=== PATIENT | male | born 1970 | race American Indian/Alaskan Native ===

== ENCOUNTER 2019-02-08 21:06 | Emergency (ER) | payer OTHER ==
[~2019-02-08] VITALS: Ht 175.3 cm; Wt 80.7 kg
[2019-02-08] MEDS ORDERED: NORCO 5-325 TA1 EACH PO (22:11)
== END 2019-02-08 22:22 | disposition home or self-care (01) ==
LOC: ED 21:06
DX: S43.101A Unspecified dislocation of right acromioclavicular joint, initial encounter (principal); V29.9XXA Motorcycle rider (driver) (passenger) injured in unspecified traffic accident, initial encounter
CPT/HCPCS: 73030; 99283-25

== ENCOUNTER 2020-04-18 21:14 | Emergency (ER) | payer OTHER ==
[~2020-04-18] VITALS: Ht 175.3 cm; Wt 80.7 kg
[~2020-04-18 21:14] MED LIST: NORCO 5-325 TA1 EACH PO
[2020-04-18] MEDS ORDERED: NORCO 5-325 TA1 EACH PO (22:17)
== END 2020-04-18 22:28 | disposition home or self-care (01) ==
LOC: ED 21:14
DX: S42.022A Displaced fracture of shaft of left clavicle, initial encounter for closed fracture (principal); S63.610A Unspecified sprain of right index finger, initial encounter; S80.211A Abrasion, right knee, initial encounter; V29.9XXA Motorcycle rider (driver) (passenger) injured in unspecified traffic accident, initial encounter
CPT/HCPCS: 73030; 73140; 81001; 99283-25

== ENCOUNTER 2020-04-19 12:24 | Emergency (ER) | payer OTHER ==
[~2020-04-19] VITALS: Ht 175.3 cm; Wt 80.7 kg
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
== END 2020-04-19 15:53 | disposition home or self-care (01) ==
LOC: ED 12:24
DX: S32.019A Unspecified fracture of first lumbar vertebra, initial encounter for closed fracture (principal); S32.029A Unspecified fracture of second lumbar vertebra, initial encounter for closed fracture; S32.039A Unspecified fracture of third lumbar vertebra, initial encounter for closed fracture; T79.6XXA Traumatic ischemia of muscle, initial encounter; V29.9XXA Motorcycle rider (driver) (passenger) injured in unspecified traffic accident, initial encounter
CPT/HCPCS: 74177; 80048; 82550; 85025; 99284-25; Q9967

== ENCOUNTER 2020-05-03 08:00 | Day surgery (SDC) | payer OTHER ==
[~2020-05-03] VITALS: Ht 175.3 cm; Wt 77.1 kg
[2020-05-03] MEDS ORDERED: HYDROCODON-ACE1 EA11 PO (11:14)
[2020-05-03] MEDS ORDERED: GABAPENTIN300 MG PO (11:14)
--- NOTE | 2020-05-03 11:19 | NUR ---
05/03/20 Yola9 Rocio Beyer 1113- PT TO PACU IN SUPINE POSITION. EYES CLOSED WITH ORAL AIRWAY IN PLACE. DOES NOT RESPOND TO VERBAL STIMULI. BREATHING EASY AND UNLABORED SPO2 >95% ON 6 L O2 VIA SIMPLE MASK. SLING IN PLACE. REPORT RECEIVED FROM LAUNDRY TUB MAKER AND ENGINEERING MANAGER. 1119- PT CONTINUES TO SLEEP IN SUPINE POSITION WITH ORAL AIRWAY IN PLACE. BREATHING EASY AND UNALBORED SPO2 >95% ON 6 L O2 VIA SIMPLE MASK.
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
== END 2020-05-03 12:50 | disposition home or self-care (01) ==
LOC: DS 08:00
PROVIDERS: Specialist
PROC: 0PSB04Z Reposition Left Clavicle with Internal Fixation Device, Open Approach (ICD-10-PCS; principal; 2020-05-03 10:45)
DX: S42.032A Displaced fracture of lateral end of left clavicle, initial encounter for closed fracture (principal); V89.2XXA Person injured in unspecified motor-vehicle accident, traffic, initial encounter
CPT/HCPCS: 01630; 62320; 64415; 64999; 73000; 76942; C1713; J0690; J1100; J1885; J2001; J2405; J2704; J2795; J3010

== ENCOUNTER 2021-12-29 11:00 | Emergency (ER) | payer OTHER ==
[~2021-12-29] VITALS: Ht 175.3 cm; Wt 80.7 kg
[~2021-12-29 11:00] MED LIST changes: +GABAPENTIN300 MG PO; +HYDROCODON-ACE1 EA11 PO
== END 2021-12-29 15:01 | disposition home or self-care (01) ==
LOC: ED 11:00
DX: S40.012A Contusion of left shoulder, initial encounter (principal); T84.038A Mechanical loosening of other internal prosthetic joint, initial encounter; V00.311A Fall from snowboard, initial encounter; Y93.29 Activity, other involving ice and snow
CPT/HCPCS: 73000; 73200; 99284-25; A9270

== ENCOUNTER 2022-02-20 07:25 | Day surgery (SDC) | payer OTHER ==
[~2022-02-20] VITALS: Ht 175.3 cm; Wt 79.5 kg
[2022-02-20] MEDS ORDERED: HYDROCODON-ACE1 EA10 PO (10:18)
--- NOTE | 2022-02-20 10:19 | NUR ---
02/20/22 1019 Debbie Allen 1011 PATIENT ARRIVES TO PACU UNRESPONSIVE TO PAIN. RN HOLDING JAW THRUST TO MAINTAIN PATENT AIRWAY. RESP EVEN AND UNLABORED,WITH INTERVENTION, MASK AT 6 LITERS. 1015 HOB ELEVATED. RN NO LONGER NEEDING TO HOLD JAW THRUST TO MAINTAIN PATENT AIRWAY.RESP EVEN AND UNLABORED, MASK CONTINUES AT 6 LITERS. 1017 PATIENT OPENS EYES WITH VERBAL STIMULI. RESP EVEN AND UNLABORED, OXYGEN MASK OFF. PATIENT SLEEPING WHEN NOT STIMULATED.
--- NOTE | 2022-02-20 11:01 | NUR ---
1045: PATIENT BACK IN DAY SURGERY ROOM FROM PACU. VS CHECKED. RATES PAIN 1/10. GIVEN SODA, ICE WATER, AND PUDDING. LEFT CLAVICLE DRESSING CDI. CSM TO LEFT FINGERS WNL. IV SITE WNL. SCDs ON. CALL LIGHT WITHIN REACH.
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
== END 2022-02-20 11:40 | disposition home or self-care (01) ==
LOC: DS 07:25
PROVIDERS: ATTEND Specialist
PROC: 0RPK0J6 Removal of Synthetic Substitute from Left Shoulder Joint, Humeral Surface, Open Approach (ICD-10-PCS; principal; 2022-02-20 10:45)
DX: T84.84XA Pain due to internal orthopedic prosthetic devices, implants and grafts, initial encounter (principal); T84.028A Dislocation of other internal joint prosthesis, initial encounter; G89.18 Other acute postprocedural pain
CPT/HCPCS: J0131; J0690; J1100; J1885; J2001; J2405; J2704; J3010; J7121

== ENCOUNTER 2024-05-30 13:28 | Emergency (ER) | payer OTHER ==
[~2024-05-30] VITALS: Ht 175.3 cm; Wt 76.5 kg
[2024-05-30] MEDS ORDERED: ondansetron HCL 4 MG/2 ML VIAL IV ONE (14:15)
[2024-05-30] MEDS ORDERED: SODIUM CHLORIDE 0.9% 1,000 ML IV ONE (14:15)
[2024-05-30] MEDS ORDERED: KETOROLAC TROMETHAMINE 30 MG/ML VIAL IV ONE (14:15)
[2024-05-30 14:23] LABS: BILIRUBIN, URINE NEGATIVE (negative); BLOOD/HGB, URINE MODERATE (Negative); KETONE, URINE SMALL (Negative); LEUK ESTERASE, URINE NEGATIVE (negative); NITRITE, URINE POSITIVE (negative); PH, URINE 6.5 (5-7)
[2024-05-30 14:25] LABS: EOSINOPHILS 0.2 % (0-6); NEUTROPHILS 89.4 % (39-80); RDW 14.3 (10.5-15.0)
[2024-05-30 14:27] LABS: BASOPHILS 0.4 % (0-2); HEMATOCRIT 45.3 % (35.0-50.0); HEMOGLOBIN 14.9 g/dL (12.0-18.0); LYMPHOCYTES 5.9 % (24-44); MCH 29.5 (27-36); MCHC 32.8 g/dl (30-36); MONOCYTES 4.1 % (0-12); PLATELET COUNT 283 K/uL (140-440); RBC 5.03 M/ul (4.3-5.7)
[2024-05-30 14:31] LABS: BACTERIA, URINE NONE SEEN /hpf (negative); CASTS, URINE NONE SEEN \\lpf; COLLECTION TYPE, URINE CLEAN CATCH; CRYSTALS, URINE NONE SEEN (0-1+); EPITHELIAL CELLS, URINE NONE SEEN /lpf (0-1+); REFLEX CULTURE, URINE No (No)
[2024-05-30 14:44] LABS: ALBUMIN 3.9 g/dL (3.4-5.0); ALBUMIN/GLOBULIN RATIO 0.95 (1.1-2.4); BILIRUBIN, TOTAL 1.2 ng/dL (0.2-1.0); BUN/CREATININE RATIO 10.07 (6.0-28.6); CALCIUM 9.3 mg/dL (8.5-10.1); CREATININE, SERUM 1.29 mg/dL (0.70-1.30)
[2024-05-30] MEDS ORDERED: TAMSULOSIN HCL 0.4 MG CAP PO ONE (17:00)
[2024-05-30 17:11] VITALS: BP 164/94
== END 2024-05-30 17:12 | disposition home or self-care (01) ==
LOC: ED 13:28
PROVIDERS: Emergency Medicine
DX: N13.2 Hydronephrosis with renal and ureteral calculous obstruction (principal)
CPT/HCPCS: 36415; 74176; 80053; 81001; 85025; 96361; 96374; 96375; 99284-25; J1885; J2405; J7030

== ENCOUNTER 2024-06-03 20:37 | Emergency (ER) | payer OTHER ==
[~2024-06-03] VITALS: Ht 175.3 cm; Wt 79.6 kg
[2024-06-03 21:18] VITALS: BP 170/105
== END 2024-06-03 21:22 | disposition home or self-care (01) ==
LOC: ED 20:37
DX: N13.2 Hydronephrosis with renal and ureteral calculous obstruction (principal); I10 Essential (primary) hypertension; Z79.899 Other long term (current) drug therapy
CPT/HCPCS: 99283